=== PATIENT | female | born 1995 | race Caucasian/White ===

== ENCOUNTER 2024-07-08 18:30 | Emergency (ER) | payer MEDICAID, SELFPAY ==
--- NOTE | ~2024-07-08 | XR_ITS ---
EXAMINATION: XR CHEST CLINICAL INFORMATION: Shortness of breath COMPARISON: None available. TECHNIQUE: Frontal view of the chest was obtained. FINDINGS: No significant abnormality is noted involving the heart, lungs, mediastinum, bony thorax or soft tissues. XR/XR chest 1V IMPRESSION: Unremarkable examination. Electronically signed by: Trino Arteaga MD 07/08/2024 11:19 PM [facility]
[2024-07-08 18:37] VITALS: BP 125/99; PULSE 116; RESP 22; TEMP 37; O2SAT 94; BMI 23.0
[2024-07-08] MEDS: methylPREDNISolone Sod Succ 125 MG/2 ML VIAL IVPUSH (18:42)
[2024-07-08] MEDS: Magnesium Sulfate/H2O 2 GM/50 ML PIGGYBACK IV (18:48)
[2024-07-08 18:49] VITALS: PULSE 103; RESP 18; O2SAT 94
[2024-07-08] MEDS: Albuterol Sulfate 7.5 MG, Albuterol Sulfate (0.083%) 2.5 MG 10 MG INHALE ×2 (18:49→19:56)
--- NOTE | 2024-07-08 19:21 | ED_ITS ---
HPI - SOB/Dyspnea General Chief Complaint: Dyspnea Stated Complaint: Asthma Attack Time Seen by Provider: 07/08/24 19:01 History of Present Illness HPI Narrative: Patient is a 29-year-old female with a history of asthma. Baseline smokes. Never been hospitalized for asthma in the past. Been to urgent Care in the past. Presents today with having some low-grade fevers some coughing upper respiratory symptoms. Also wheezing. Sent in from urgent care for further evaluation. Related Data Previous Rx's ?Medication ?Instructions ?Recorded azithromycin 250 mg tablet See Rx Instructions PO .COMPLEX 07/08/24 upper resp infection #6 tabs prednisone 20 mg tablet 40 mg (2 x 20 mg) PO DAILY #10 tabs 07/08/24 Allergies Allergy/AdvReac Type Severity Reaction Status Date / Time No Known Allergies Allergy Unverified 07/08/24 18:40 [No Known Allergies*] Review of Systems Review of Systems: Positive wheezing positive shortness of breath positive coughing upper respiratory symptoms Yes all other systems are reviewed and are negative [facility] Past Medical History Attestation statement: The following information was validated with the patient. Social History Social History Advance Directives: No Advance Directives Information Provided: No Physical Exam Vital Signs: Vital Signs: Last Vital Signs Temp 98.4 F 07/08/24 19:56 Pulse 120 H 07/08/24 19:56 Resp 26 H 07/08/24 19:56 BP 134/74 07/08/24 19:56 Pulse Ox 94 07/08/24 19:56 O2 Del Method Room Air 07/08/24 19:56 BMI result Body Mass Index 23.0 Appearance: Alert. Oriented X3. No acute distress. Eyes: Pupils equal, round and reactive to light. ENT: Pharynx normal. Neck: Normal inspection. Neck supple. No lymph nodes noted. No crepitus CVS: Normal heart rate and rhythm. Pulses normal. Normal S1 and S2 Respiratory: Positive expiratory wheezes bilaterally. Moving good air. Abdomen: Soft and nontender. No rigidity. No distention. good BS x4 Skin: Skin warm and dry. Normal skin color. Normal skin turgor. Extremities: No lower extremity edema. Neurovascular intact to all extremities. No Lacerations. No Rash Neuro: Oriented X 3. No motor deficit. No sensory deficit. Moving all extermities. No slurred speech Medications Administered Discontinued Medications Generic Name Dose Route Start Last Admin Trade Name Andrew PRN Reason Stop Dose Admin Albuterol Sulfate 7.5 mg/ 10 mg 07/08/24 18:43 07/08/24 18:49 Albuterol Sulfate 2.5 mg INHALE 07/08/24 18:44 10 mg ONCE ONE Administration Albuterol Sulfate 7.5 mg/ 10 mg 07/08/24 19:42 07/08/24 19:56 Albuterol Sulfate 2.5 mg INHALE 07/08/24 19:43 10 mg ONCE ONE Administration Magnesium Sulfate 2 gm in 50 mls @ 150 mls/hr 07/08/24 18:38 07/08/24 19:08 Magnesium Sulfate/H2o IV 07/08/24 18:57 Infused ONCE ONE Infusion Methylprednisolone Sodium Succinate 125 mg 07/08/24 18:37 07/08/24 18:42 Methylprednisolone Sod Succ 125 Mg/2 Ml Vial IVPUSH 07/08/24 18:38 125 mg ONCE ONE Administration Medical Decision Making Medical Decision Making [facility] Narrative: Will give additional treatments. Patient is still wheezing. COVID flu RSV was sent. Chest x-ray ordered. Magnesium given. Dose of Solu-Medrol was given. Patient monitored carefully. Given multiple nebs. O2 sat is now 99% on room air. Lungs still have some wheezing but moving good amount of air. In no acute distress. Will discharge patient home. Close follow-up advised. Differential Diagnosis Differential Diagnoses: The differential diagnosis associated with the presentation includes Asthma, upper respiratory infection Admission/Observation Consideration of admission/observation: Escalation of care including admission/observation considered Lab Data [facility] Lab Attestation statement: I reviewed the patient's lab results. Labs: Lab Results 07/08/24 Range/Units 19:53 Influenza Type A (PCR) NEGATIVE (Negative) Influenza Type B (PCR) NEGATIVE (Negative) RSV RNA Qual (PCR) NEGATIVE (Negative) SARS-CoV-2 RNA (RT-PCR) NEGATIVE (Negative) Independent Interpretation I performed an independent interpretation of an: Plain X-Ray (Chest x-ray negative for pneumonia. No pneumothorax.) Radiology Impression Discussion of test interpretation with radiology: I have reviewed the radiologist's reading. Prescription Management I considered prescription management with: Antibiotic Discharge Plan Discharge Clinical Impression: Asthma with exacerbation, Bronchitis Patient Disposition: Home, Self-Care Instructions: Asthma (ED), Acute Bronchitis (ED) Prescriptions: New azithromycin 250 mg tablet See Rx Instructions .ROUTE .COMPLEX Qty: 6 0RF Rx Instructions: take 500 mg today (day 1), then 250 mg for 4 days (days 2-5) prednisone 20 mg tablet 40 mg PO DAILY Qty: 10 0RF Referrals: Mary Arriaga, ATM MANAGER [Primary Care Provider] - 07/10/24 Print Language: [place]an
[2024-07-08 19:56] VITALS: BP 134/74; PULSE 119; PULSE 120; RESP 18; RESP 26; TEMP 36.9; O2SAT 94
--- NOTE | 2024-07-08 20:04 | MHC.EDTECH ---
This tech took over care of patient at 1900,rounded and introduced self to pt,vitals taken resp rate is 26,HR 120,RN aware RT at bedside pt getting tx,Sars/Flu/Rsv collected sent to lab,call ruiz in reach
[2024-07-08 20:41] LABS: Influenza A PCR NEGATIVE (Negative); Influenza B PCR NEGATIVE (Negative); Resp Syncy Virus RNA Qual PCR NEGATIVE (Negative); SARS COV2 PCR INHOUSE NEGATIVE (Negative)
[2024-07-08 23:25] VITALS: BP 117/54; PULSE 111; RESP 22; TEMP 37; O2SAT 93
[2024-07-08 23:52] VITALS: BP 117/54; PULSE 111; RESP 22; TEMP 37; O2SAT 93
== END 2024-07-08 23:54 | disposition home or self-care (01) ==
PROVIDERS: Emergency Provider Emergency Medicine Emergency Medical Services; PCP Nurse Practitioner Family
DX: J45.901 Unspecified asthma with (acute) exacerbation (principal); Z03.818 Encounter for observation for suspected exposure to other biological agents ruled out; R50.9 Fever, unspecified; R05.9 Cough, unspecified
CPT/HCPCS: 0241U; 71045; 94640; 96365; 96375; 99284; J2919; J3475